=== PATIENT | male | born 1935 | race Native Hawaiian/Other Pacific Islander ===

== ENCOUNTER 2020-07-20 16:42 | Outpatient (CLI) | payer OTHER ==
[2020-07-20 17:15] LABS: PLATELET COUNT 182 K/uL (142-355)
[2020-07-20 17:33] LABS: POTASSIUM 3.7 mmol/L (3.6-5.2)
== END 2020-07-20 21:01 | disposition home or self-care (01) ==
LOC: LAB 16:42
PROVIDERS: ATTEND Nurse Practitioner Family
DX: Z00.00 Encounter for general adult medical examination without abnormal findings (principal); I10 Essential (primary) hypertension; E78.49 Other hyperlipidemia; G47.00 Insomnia, unspecified; E88.81 Metabolic syndrome and other insulin resistance; E27.8 Other specified disorders of adrenal gland; R53.83 Other fatigue; R53.81 Other malaise; E55.9 Vitamin D deficiency, unspecified; E53.8 Deficiency of other specified B group vitamins; Z79.899 Other long term (current) drug therapy
CPT/HCPCS: 80053; 82306; 82607; 83036; 84443; 85007; 85027